=== PATIENT | female | born 1960 | race African-American/Black ===

== ENCOUNTER 2018-06-29 18:23 | Emergency (ER) | payer MEDICAID ==
[~2018-06-29] VITALS: Ht 167.6 cm; Wt 80.0 kg
[2018-06-30] MEDS ORDERED: IBUPROFEN 600MG TABLET PO ONE (01:30)
[2018-06-30 04:27] VITALS: BP 156/94
== END 2018-06-30 04:31 | disposition home or self-care (01) ==
LOC: ER 18:23
DX: M79.10 Myalgia, unspecified site (principal); M25.511 Pain in right shoulder; R07.89 Other chest pain; I10 Essential (primary) hypertension; V49.09XA Driver injured in collision with other motor vehicles in nontraffic accident, initial encounter; Y93.89 Activity, other specified; Y92.89 Other specified places as the place of occurrence of the external cause; Y99.8 Other external cause status
CPT/HCPCS: 70450; 71045; 73030; 93005; 99284